=== PATIENT | female | born 1980 | race Two or more races ===

== ENCOUNTER 2022-11-16 09:22 | Inpatient (IN) | payer OTHER ==
[2022-11-16 09:38] VITALS: BMI 26.9
[2022-11-16] MEDS ORDERED: CEFTRIAXONE 1,000 MG in DEXTROSE 5%-WATER - 50 ML IVPB ONE (10:24)
[2022-11-16] MEDS ORDERED: ACETAMINOPHEN 1000 MG/100 ML BAG IVPB ONE (10:24)
[2022-11-16] MEDS ORDERED: SODIUM CHLORIDE 0.9% 500 ML INFUS.BAG IV ONE (10:28)
[2022-11-16 10:54] LABS: BASO % 0.5 % (0-2.0); EOS % 0.1 % (0-4.5); HEMATOCRIT 30.2 % (32.4-45.2); HEMOGLOBIN 10.4 GM/dL (10.7-15.3); LYMPH % 9.1 % (8-40); MCH 27.2 pg (25.7-33.7); MCHC 34.4 g/dl (32.0-36.0); MONO % 6.6 % (3.8-10.2); NEUT % 83.7 % (42.8-82.8); PLATELET COUNT 280 10^3/uL (134-434); RBC 3.82 M/mm3 (3.60-5.2); RDW 14.5 % (11.6-15.6); WHITE BLOOD COUNT 17.3 K/mm3 (4.0-10.0)
[2022-11-16 11:00] LABS: POTASSIUM 4.3 mmol/L (3.5-5.1)
[2022-11-16 11:02] LABS: ALBUMIN 2.6 g/dl (3.4-5.0)
[2022-11-16] MEDS ORDERED: CEFTRIAXONE 1 GM/50 ML BAG ONE (11:02)
[2022-11-16] MEDS ORDERED: ACETAMINOPHEN INJECTION 100 ML IVPB ONE (11:02)
[2022-11-16 11:03] LABS: BLOOD UREA NITROGEN 12.9 mg/dL (7-18); CALCIUM 8.6 mg/dL (8.5-10.1)
[2022-11-16 11:06] LABS: CREATININE 0.8 mg/dL (0.55-1.3)
[2022-11-16 11:08] LABS: BILIRUBIN,TOTAL 0.3 mg/dL (0.2-1)
[2022-11-16] MEDS ORDERED: ACETAMINOPHEN 1000 MG/100 ML BAG IVPB PRN (16:08)
[2022-11-16] MEDS ORDERED: morphine CARPU-JECT 4 MG/1 ML DISP.SYRIN IVPUSH ONE (16:10)
[2022-11-16] MEDS ORDERED: morphine SULFATE 4 MG/ML VIAL IVPUSH ONE (16:15)
[2022-11-16 17:53] LABS: INR 1.06 (0.83-1.09); PROTHROMBIN TIME (PATIENT) 12.3 SEC (9.7-13.0)
[2022-11-16 17:56] LABS: ACTIVATED PTT 26.3 SECONDS (25.2-36.5)
[2022-11-16 19:43] LABS: EPI CELLS 2 /uL (0-25.1); HYALINE CASTS 1 /uL (0-3.1); URINE APPEARANCE CLEAR; URINE BACTERIA 103 /uL (0-1359); URINE BILIRUBIN NEGATIVE (NEGATIVE); URINE COLOR YELLOW; URINE GLUCOSE (UA) NEGATIVE (NEGATIVE); URINE KETONE NEGATIVE (NEGATIVE); URINE LEUK ESTERASE 3+ (NEGATIVE); URINE NITRITE NEGATIVE (NEGATIVE); URINE PROTEIN 1+ (NEGATIVE); URINE RBC 138 /uL (0-23.9); URINE UROBILINOGEN 0.2 mg/dL (0.2-1.0); URINE WBC 599 /uL (0-25.8)
[2022-11-17] MEDS: CEFTRIAXONE 1 GM in DEXTROSE 5%-WATER - 50 ML IVPB SCH (09:25)
[2022-11-18] MEDS: CEFTRIAXONE 1 GM in DEXTROSE 5%-WATER - 50 ML IVPB SCH (11:04)
[2022-11-18 11:28] VITALS: BP 104/65; PULSE 98; RESP 17; TEMP 97.4
== END 2022-11-18 14:35 | disposition home or self-care (01) | DRG 560 ==
LOC: JER 09:22 → JERBED 13:07 → J3W 15:13
PROVIDERS: ADMIT Specialist; ATTEND Specialist
DX: O98.82 Other maternal infectious and parasitic diseases complicating childbirth (principal); Z3A.36 36 weeks gestation of pregnancy
CPT/HCPCS: 36415; 76775-TC; 80053; 81003; 83605; 85025; 85610; 85730; 86780; 86850; 86900; 86901; 87040; 87086; 99285-25; C9803-CS; U0003; U0005

== ENCOUNTER 2022-12-20 10:08 | Inpatient (IN) | payer OTHER ==
[2022-12-20 11:39] VITALS: BMI 27.2
[2022-12-20] MEDS ORDERED: FENTANYL CITRATE/PF 50 MCG/ML VIAL ONE (11:44)
[2022-12-20] MEDS ORDERED: morphine SULFATE/PF 1 MG/2 ML (2cc Syringe - QUVA) ONE (11:44)
[2022-12-20] MEDS ORDERED: OXYTOCIN 10 UNITS/ML VIAL ONE (14:08)
[2022-12-20] MEDS ORDERED: ACETAMINOPHEN 325 MG TABLET (FP) PO PRN (14:26)
[2022-12-20] MEDS ORDERED: ONDANSETRON 4 MG/2 ML VIAL IVPB PRN (14:26)
[2022-12-20] MEDS ORDERED: IBUPROFEN 800 MG/8 ML IJ IVPB PRN (14:26)
[2022-12-20] MEDS ORDERED: SENNOSIDES/DOCUSATE COMBO (SENNA PLUS) TABLET (UD) PO PRN (14:26)
[2022-12-20] MEDS: OXYTOCIN 20 UNITS in 0.9% NS 20 UNIT/1,000 ML INFUS.BAG IV SCH (14:45)
[2022-12-20] MEDS ORDERED: ELECTROLYTE-148 SOLN 500 ML IV ONE (16:10)
[2022-12-20] MEDS ORDERED: CITRIC ACID/SODIUM CITRATE 30 ML UNIT-DOSE CUP PO ONE (16:10)
[2022-12-20] MEDS ORDERED: ELECTROLYTE-148 SOLN 1,000 ML IV SCH (16:15)
[2022-12-20] MEDS: ACETAMINOPHEN 1000 MG/100 ML BAG IVPB SCH ×2 (16:30→20:10)
[2022-12-20] MEDS ORDERED: OXYTOCIN 20 UNITS in 0.9% NS 20 UNIT/1,000 ML INFUS.BAG IV ONE (16:34)
[2022-12-20] MEDS ORDERED: ACETAMINOPHEN INJECTION 100 ML IVPB ONE (16:34)
[2022-12-21] MEDS: OXYTOCIN 20 UNITS in 0.9% NS 20 UNIT/1,000 ML INFUS.BAG IV SCH ×2 (01:13→16:04)
[2022-12-21] MEDS: ACETAMINOPHEN 1000 MG/100 ML BAG IVPB SCH ×2 (02:03→08:29)
[2022-12-21 09:27] LABS: BASO % 0.2 % (0-2.0); EOS % 0.6 % (0-4.5); HEMATOCRIT 30.9 % (32.4-45.2); HEMOGLOBIN 9.9 GM/dL (10.7-15.3); LYMPH % 10.7 % (8-40); MCH 25.7 pg (25.7-33.7); MEAN CELL VOLUME 80.3 fl (80-96); MEAN PLT VOLUME 10.2 fl (7.5-11.1); MONO % 5.8 % (3.8-10.2); NEUT % 82.7 % (42.8-82.8); PLATELET COUNT 178 10^3/uL (134-434); RBC 3.85 M/mm3 (3.60-5.2); RDW 16.6 % (11.6-15.6); WHITE BLOOD COUNT 14.8 K/mm3 (4.0-10.0)
[2022-12-21] MEDS: SIMETHICONE 80 MG TAB.CHEW (FP) PO PRN ×2 (12:44→20:07)
[2022-12-21] MEDS: IBUPROFEN 600 MG TABLET (FP) PO PRN ×2 (12:44→20:07)
[2022-12-21] MEDS: oxyCODONE HCL 5 MG TABLET PO PRN (13:50)
[2022-12-21] MEDS ORDERED: BISACODYL 10 MG SUPP.RECT RC PRN (14:26)
[2022-12-21 22:05] VITALS: RESP 18
[2022-12-22] MEDS: SIMETHICONE 80 MG TAB.CHEW (FP) PO PRN (07:24)
[2022-12-22] MEDS: oxyCODONE HCL 5 MG TABLET PO PRN (07:24)
[2022-12-22] MEDS: IBUPROFEN 600 MG TABLET (FP) PO PRN (09:03)
[2022-12-22] MEDS: ACETAMINOPHEN 500 MG TABLET (FP) PO SCH ×2 (10:50→17:38)
[2022-12-22] MEDS: FERROUS SO4 325 MG TABLET (FP) PO SCH (12:44)
[2022-12-22] MEDS: IBUPROFEN 600 MG TABLET (FP) PO SCH ×2 (15:00→21:13)
[2022-12-23] MEDS: ACETAMINOPHEN 500 MG TABLET (FP) PO SCH ×2 (02:30→10:07)
[2022-12-23] MEDS: IBUPROFEN 600 MG TABLET (FP) PO SCH ×2 (03:10→08:26)
[2022-12-23] MEDS: SIMETHICONE 80 MG TAB.CHEW (FP) PO PRN (08:26)
[2022-12-23] MEDS: FERROUS SO4 325 MG TABLET (FP) PO SCH (10:07)
[2022-12-23 12:37] VITALS: BP 125/88; PULSE 87; TEMP 97.2
== END 2022-12-23 16:40 | disposition home or self-care (01) | DRG 540 ==
LOC: JLDR 10:08 → J3W 16:45
PROVIDERS: ADMIT Specialist; ATTEND Specialist
PROC: 10D00Z1 Extraction of Products of Conception, Low, Open Approach (ICD-10-PCS; principal; 2022-12-20)
DX: O34.219 Maternal care for unspecified type scar from previous cesarean delivery (principal); Z3A.37 37 weeks gestation of pregnancy; Z37.0 Single live birth
CPT/HCPCS: 36415; 85025; 86850; 86900; 86901; 94010